=== PATIENT | male | born 1980 ===

== ENCOUNTER 2016-11-10 11:45 | Emergency (ER) | payer MEDICAID, OTHER ==
[2016-11-10 11:46] VITALS: BMI 25.0
[2016-11-10 11:51] VITALS: BP 137/72; PULSE 74; RESP 18; TEMP 98.4; O2SAT 100
--- NOTE | 2016-11-10 12:17 | C.PDOC ---
History Of Present Illness 35 y/o male presents to ED with complaints of lesions on scrotum and left buttock. Patient states it is an herpes outbreak that he has had before and is requesting for medications. Patient denies dysuria, hematuria, fever or any other complaints at this time. Time Seen by Provider: 11/10/16 12:01 Chief Complaint (Nursing): Abnormal Skin Integrity History Per: Patient History/Exam Limitations: no limitations Onset/Duration Of Symptoms: Days Past Medical History Reviewed: Historical Data, Nursing Documentation, Vital Signs Vital Signs: Last Vital Signs Temp 98.4 F 11/10/16 11:48 Pulse 74 11/10/16 11:48 Resp 18 11/10/16 11:48 BP 137/72 11/10/16 11:48 Pulse Ox 100 11/10/16 12:18 - Medical History PMH: Anxiety, Bipolar Disorder, Cardia Arrhythmia, Depression, Schizophrenia - [facility] Procedures INSERTION OF ENDOTRACHEAL AIRWAY INTO TRACHEA, VIA OPENING (07/10/15) PSYCHIA INTERV/EVAL NEC (12/12/14) RESPIRATORY VENTILATION, 24-96 CONSECUTIVE HOURS (07/10/15) Family History: States: Unknown Family Hx - Social History Hx Tobacco Use: Yes Hx Alcohol Use: Yes Hx Substance Use: Yes - Immunization History Hx Tetanus Toxoid Vaccination: Yes Hx Influenza Vaccination: No Hx Pneumococcal Vaccination: No Review Of Systems Except As Marked, All Systems Reviewed And Found Negative. Constitutional: Negative for: Fever Genitourinary: Negative for: Dysuria, Hematuria Skin: Positive for: Lesions Physical Exam - Physical Exam Appears: Other (uncomfortable) Skin: Warm, No Dry Head: Atraumatic, Normacephalic Cardiovascular: Rhythm Regular, No Murmur Respiratory: Normal Breath Sounds, No Rales, No Rhonchi, No Wheezing Male Genital: Other (Scattered vesicular lesion on scrotum and inner left buttock) Extremity: Normal ROM, No Swelling Neurological/Psych: Oriented x3 ED Course And Treatment O2 Sat by Pulse Oximetry: 100 (RA) Pulse Ox Interpretation: Normal Medical Decision Making Medical Decision Making: Patient is discharged with medications and advised to follow up with PMD 1-2 days. Disposition Counseled Patient/Family Regarding: Diagnosis, Need For Followup, Rx Given - Disposition Referrals: [facility] [Outside] Disposition: HOME/ ROUTINE Disposition Time: 12:20 Condition: STABLE Additional Instructions: FOLLOW UP WITH YOUR DOCTOR IN 1-2 DAYS USE MEDICATIONS DIRECTED RETURN TO ER IF SYMPTOMS WORSEN Prescriptions: Acyclovir 400 mg PO TID #21 tablet Naproxen [Naprosyn Tab] 375 mg PO BID PRN #20 tab PRN Reason: pain Instructions: Genital Herpes Simplex (ED) Forms: Work Excuse Print Language: K[place]HILI - Clinical Impression Clinical Impression: Herpes genitalis - Scribe Statement The provider has reviewed the documentation as recorded by the Ginger Walters All medical record entries made by the Ginger were at my direction and personally dictated by me. I have reviewed the chart and agree that the record accurately reflects my personal performance of the history, physical exam, medical decision making, and the department course for this patient. I have also personally directed, reviewed, and agree with the discharge instructions and disposition.
== END 2016-11-10 12:58 | disposition home or self-care (01) ==
LOC: C.ER 11:45
DX: A60.02 Herpesviral infection of other male genital organs (principal)

== ENCOUNTER 2016-12-20 07:25 | Emergency (ER) | payer MEDICAID ==
[2016-12-20 07:26] VITALS: BMI 25.0
[2016-12-20 08:09] VITALS: TEMP 97.8; O2SAT 98
[2016-12-20 09:00] LABS: ALBUMIN 3.9 g/dL (3.5-5.0)
[2016-12-20 09:02] LABS: GFR AFRICAN-AMERICAN > 60; GFR NON-AFRICAN AMERICAN > 60
[2016-12-20 09:03] LABS: ALB/GLOB RATIO 0.8 (1.0-2.1); ALT/SGPT 29 U/L (21-72); AST/SGOT 40 U/L (17-59); BASO % 0.7 % (0.0-2.0); BLOOD UREA NITROGEN 13 mg/dL (9-20); CALCIUM 8.2 mg/dl (8.6-10.4); EOS # 0.2 K/uL (0.0-0.7); EOS % 8.1 % (0.0-4.0); HEMOGLOBIN 13.8 g/dL (12.0-18.0); LYMPH # 0.9 K/uL (1.0-4.3); LYMPH % 28.2 % (20.0-40.0); MEAN CELL VOLUME 93.2 fL (80.0-94.0); MEAN CORPUSCULAR HEMOGLOBIN 31.7 pg (27.0-31.0); MEAN PLATELET VOLUME 7.8 fL (7.2-11.7); MONO # 0.4 K/uL (0.0-0.8); MONO % 12.4 % (0.0-10.0); NEUT # 1.6 K/uL (1.8-7.0); NEUT % 50.6 % (50.0-75.0); NRBC % 0.2 % (0.0-2.0); RBC 4.34 Mil/uL (4.40-5.90); RED CELL DISTRIBUTION WIDTH 13.6 % (11.5-14.5); SQUAMOUS EPITHIAL < 1 /hpf (0-5); URINE BILIRUBIN NEGATIVE (NEGATIVE); URINE BLOOD 2+ (NEGATIVE); URINE CLARITY Clear (Clear); URINE COLOR Yellow (YELLOW); URINE GLUCOSE (UA) NORMAL (Normal); URINE LEUKOCYTE ESTERASE NEG Leu/uL (Negative); URINE NITRATE NEGATIVE (NEGATIVE); URINE PROTEIN NEGATIVE (NEGATIVE); URINE UROBILINOGEN NORMAL mg/dL (0.2-1.0); WHITE BLOOD COUNT 3.1 K/uL (4.8-10.8)
--- NOTE | 2016-12-20 09:20 | C.PDOC ---
History Of Present Illness 36 yr old male presents to the ER stating he has not been able to sleep for the past 6 days. Patient states his mind is "racing" and he has been concentrating on the same thing multiple times a day. Patient denies being seen by a psychiatrist, SI, HI, hallucinations, chest pain or SOB. Time Seen by Provider: 12/20/16 08:20 Chief Complaint (Nursing): Psychiatric Evaluation History Per: Patient History/Exam Limitations: no limitations Onset/Duration Of Symptoms: Days (6) Suicide/Self Injury Attempted (Context): None Past Medical History Reviewed: Historical Data, Nursing Documentation, Vital Signs Vital Signs: Last Vital Signs Temp 97.8 F 12/20/16 07:55 Pulse 79 12/20/16 10:30 Resp 16 12/20/16 10:30 BP 106/63 12/20/16 10:30 Pulse Ox 98 12/20/16 10:30 - Medical History PMH: Anxiety, Bipolar Disorder, Cardia Arrhythmia, Depression, Schizophrenia - [facility] Procedures INSERTION OF ENDOTRACHEAL AIRWAY INTO TRACHEA, VIA OPENING (07/10/15) PSYCHIA INTERV/EVAL NEC (12/12/14) RESPIRATORY VENTILATION, 24-96 CONSECUTIVE HOURS (07/10/15) Family History: States: No Known Family Hx - Social History Hx Tobacco Use: Yes Hx Alcohol Use: Yes Hx Substance Use: Yes - Immunization History Hx Tetanus Toxoid Vaccination: Yes Hx Influenza Vaccination: No Hx Pneumococcal Vaccination: No Review Of Systems Except As Marked, All Systems Reviewed And Found Negative. Cardiovascular: Negative for: Chest Pain Respiratory: Negative for: Shortness of Breath Psych: Negative for: Suicidal ideation Physical Exam - Physical Exam Appears: Non-toxic, No Acute Distress Skin: Warm, Dry, No Rash Head: Atraumatic, Normacephalic Oral Mucosa: Moist Chest: Symmetrical, No Tenderness Cardiovascular: Rhythm Regular, No Murmur Respiratory: Normal Breath Sounds, No Rales, No Rhonchi, No Wheezing Extremity: Normal ROM, No Swelling Neurological/Psych: Oriented x3, Normal Speech, Normal Motor ED Course And Treatment - Laboratory Results Result Diagrams: 12/20/16 08:34 12/20/16 08:34 O2 Sat by Pulse Oximetry: 98 (RA ) Pulse Ox Interpretation: Normal Medical Decision Making Medical Decision Making: PLAN: * Alcohol Serum * Drug Screen * CBC * CMP * Urinalysis * Xanax PO Disposition - Disposition Referrals: [facility] [place], [Non-Staff] - Disposition: HOME/ ROUTINE Disposition Time: 09:50 Condition: IMPROVED Additional Instructions: Thank you for letting us take care of you today. Your provider was Dr. Daniel. You were treated for anxiety. The emergency medical care you received today was directed at your acute symptoms. If you were prescribed any medication, please fill it and take as directed. It may take several days for your symptoms to resolve. Return to the Emergency Department if your symptoms worsen, do not improve, or if you have any other problems. Please contact your doctor or call one of the physicians/clinics you have been referred to that are listed on the Patient Visit Information form that is included in your discharge packet. Bring any paperwork you were given at discharge with you along with any medications you are taking to your follow up visit. Our treatment cannot replace ongoing medical care by a primary care provider (PCP) outside of the emergency department. Thank you for allowing the [facility] [place] team to be part of your care today. Follow up with your doctor and your psychiatrist in 2-3 days for further management. Prescriptions: ALPRAZolam [Xanax] 0.25 mg PO Q8 PRN #10 tab PRN Reason: Anxiety Instructions: Polysubstance Abuse (ED) Forms: [employer] (Persian) - Clinical Impression Clinical Impression: Anxiety reaction - Scribe Statement The provider has reviewed the documentation as recorded by the Scribe Yolanda Iverson Provider Attestation: All medical record entries made by the Scribe were at my direction and personally dictated by me. I have reviewed the chart and agree that the record accurately reflects my personal performance of the history, physical exam, medical decision making, and the department course for this patient. I have also personally directed, reviewed, and agree with the discharge instructions and disposition.
[2016-12-20 09:26] LABS: BARBITURATES, UR NEGATIVE (NEGATIVE)
[2016-12-20 09:27] LABS: BENZODIAZEPINES, UR NEGATIVE (NEGATIVE)
[2016-12-20 09:29] LABS: OPIATES, UR NEGATIVE (NEGATIVE)
[2016-12-20 09:45] LABS: PHENCYCLIDINE, UR POSITIVE (NEGATIVE)
[2016-12-20 10:30] VITALS: BP 106/63; PULSE 79; RESP 16
== END 2016-12-20 10:30 | disposition home or self-care (01) ==
LOC: C.ER 07:25
DX: F41.1 Generalized anxiety disorder (principal)

== ENCOUNTER 2017-05-04 21:13 | Emergency (ER) | payer SELFPAY ==
[2017-05-04 21:13] VITALS: BMI 25.0
[2017-05-04 21:25] VITALS: BP 117/79; PULSE 89; TEMP 98.2; O2SAT 95
--- NOTE | 2017-05-04 21:33 | C.PDOC ---
History Of Present Illness 36 year old male, with history of herpes, presents to the ER complaining of a painful sore in his lower lip. He feels like he is getting a breakout and would like to receive medication.He has no other medical complaints. Time Seen by Provider: 05/04/17 21:26 Chief Complaint (Nursing): Abnormal Skin Integrity History Per: Patient History/Exam Limitations: no limitations Onset/Duration Of Symptoms: Hrs Current Symptoms Are (Timing): Still Present Past Medical History Reviewed: Historical Data, Nursing Documentation, Vital Signs Vital Signs: Last Vital Signs Temp 98.2 F 05/04/17 21:20 Pulse 89 05/04/17 21:20 Resp 16 05/04/17 21:20 BP 117/79 05/04/17 21:20 Pulse Ox 95 05/04/17 21:46 - Medical History PMH: Anxiety, Bipolar Disorder, Cardia Arrhythmia, Depression, Schizophrenia Denies: Diabetes, Hepatitis, HIV, HTN, Chronic Kidney Disease, Seizures, Sexually Transmitted Disease Surgical History: No Surg Hx - [facility] Procedures INSERTION OF ENDOTRACHEAL AIRWAY INTO TRACHEA, VIA OPENING (07/10/15) PSYCHIA INTERV/EVAL NEC (12/12/14) RESPIRATORY VENTILATION, 24-96 CONSECUTIVE HOURS (07/10/15) Family History: States: No Known Family Hx - Social History Hx Tobacco Use: Yes Hx Alcohol Use: Yes Hx Substance Use: Yes - Immunization History Hx Tetanus Toxoid Vaccination: No Hx Influenza Vaccination: No Hx Pneumococcal Vaccination: No Review Of Systems Except As Marked, All Systems Reviewed And Found Negative. Skin: Positive for: Other (painful sore in lower lip) Physical Exam - Physical Exam Appears: Non-toxic, No Acute Distress, Other (agitated) Skin: Normal Color, Warm Head: Atraumatic, Normacephalic Eye(s): bilateral: Normal Inspection, EOMI Nose: Normal Oral Mucosa: Moist Lips: Erythema (mild erythema in the right side of lower lip, no vesicle), Other (apthous ulcer to the inner lower lip) Neck: Supple Chest: Symmetrical Cardiovascular: Rhythm Regular Respiratory: Normal Breath Sounds, No Accessory Muscle Use Neurological/Psych: Oriented x3, Normal Speech Gait: Steady ED Course And Treatment O2 Sat by Pulse Oximetry: 95 (RA) Pulse Ox Interpretation: Normal Medical Decision Making Medical Decision Making: Patient with oral canker sore and small spot to lower lip. Patient insists on getting Herpes medicine stating he knows he will get breakout. Prior record reviewed and patient has been seen before for similar symptom. Patient stable for discharge. Disposition Counseled Patient/Family Regarding: Need For Followup, Rx Given - Disposition Referrals: [facility] [Outside] [facility] [Outside] Disposition: HOME/ ROUTINE Disposition Time: 21:33 Condition: GOOD Additional Instructions: Follow up with the clinic in 2-5 days for further evaluation. Take medications as prescribed. Return to the emergency department at any time if symptoms persist or worsen. You may call [employer] for any assistance [phone]. Prescriptions: Acyclovir [Zovirax] 400 mg PO TID #21 tab Instructions: Oral Herpes Simplex Virus Infections (ED) Forms: [employer] (Cambodian) - POA Present On Arrival: None - Clinical Impression Clinical Impression: Herpes simplex, Aphthous ulcer - PA / [employer] MANAGER / Resident Statement MD/DO has reviewed & agrees with the documentation as recorded. - Scribe Statement The provider has reviewed the documentation as recorded by the Ginger Montelongo Provider Attestation All medical record entries made by the Ginger were at my direction and personally dictated by me. I have reviewed the chart and agree that the record accurately reflects my personal performance of the history, physical exam, medical decision making, and the department course for this patient. I have also personally directed, reviewed, and agree with the discharge instructions and disposition.
[2017-05-04 22:04] VITALS: RESP 20
== END 2017-05-04 22:03 | disposition home or self-care (01) ==
LOC: C.ER 21:13
DX: K12.0 Recurrent oral aphthae (principal); B00.1 Herpesviral vesicular dermatitis; Z87.891 Personal history of nicotine dependence

== ENCOUNTER 2018-02-20 10:14 | Emergency (ER) | payer OTHER ==
[2018-02-20 10:14] VITALS: BMI 25.0
[2018-02-20 10:21] VITALS: RESP 18; O2SAT 99
--- NOTE | 2018-02-20 11:05 | C.PDOC ---
History Of Present Illness 37 year old male patient presents to the ER with c/o lower and periumbilical abdominal pain that started at 4 am. Patient reports the pain is intermittent and he has a constant feeling of needing to have a bowel movement. Patient sta nima pain is a 4/10 with a pressure feeling. Associated symptoms includes nausea and several episodes of watery diarrhea. Patient denies vomiting and fever. Patient notes his last food intake was [employer] last night. Time Seen by Provider: 02/20/18 10:43 Chief Complaint (Nursing): Abdominal Pain History Per: Patient History/Exam Limitations: no limitations Onset/Duration Of Symptoms: Hrs Current Symptoms Are (Timing): Still Present Context: Food Pain Scale Rating Of: 4 Location Of Pain/Discomfort: Periumbilical, Other (lower abdominal ) Quality Of Discomfort: Pressure Associated Symptoms: Nausea, Diarrhea (watery). denies: Vomiting Past Medical History Reviewed: Historical Data, Nursing Documentation, Vital Signs Vital Signs: Last Vital Signs Temp 99.1 F 02/20/18 10:19 Pulse 86 02/20/18 10:19 Resp 18 02/20/18 10:19 BP 131/83 02/20/18 10:19 Pulse Ox 99 02/20/18 10:19 - Medical History PMH: Anxiety, Bipolar Disorder, Cardia Arrhythmia, Depression, Schizophrenia - [facility] Procedures INSERTION OF ENDOTRACHEAL AIRWAY INTO TRACHEA, VIA OPENING (07/10/15) PSYCHIA INTERV/EVAL NEC (12/12/14) RESPIRATORY VENTILATION, 24-96 CONSECUTIVE HOURS (07/10/15) Family History: States: Unknown Family Hx - Social History Hx Tobacco Use: Yes Hx Alcohol Use: Yes Hx Substance Use: Yes - Immunization History Hx Tetanus Toxoid Vaccination: No Hx Influenza Vaccination: No Hx Pneumococcal Vaccination: No Review Of Systems Except As Marked, All Systems Reviewed And Found Negative. Constitutional: Negative for: Fever Gastrointestinal: Positive for: Nausea, Abdominal Pain (periumbilical and lower abdominal pain), Diarrhea. Negative for: Vomiting Physical Exam - Physical Exam Appears: Non-toxic, No Acute Distress Skin: Normal Color, Warm, Dry Head: Normacephalic Eye(s): bilateral: Normal Inspection, EOMI Oral Mucosa: Moist Throat: Normal Chest: Symmetrical, No Deformity Cardiovascular: Rhythm Regular Respiratory: Normal Breath Sounds Gastrointestinal/Abdominal: Soft, Tenderness (+periumbilica tenderness; +lower abdominal tenderness) Back: No CVA Tenderness Extremity: Normal ROM (x4) Neurological/Psych: Oriented x3, Normal Speech ED Course And Treatment - Laboratory Results Result Diagrams: 02/20/18 11:16 02/20/18 11:16 O2 Sat by Pulse Oximetry: 99 (RA) Pulse Ox Interpretation: Normal Medical Decision Making Medical Decision Making: Initial impression: gastroenteritis Initial plan: -- chem labs -- blood work -- pepcid -- IV fluids -- Zofran -- UA Reassess: Patient is resting comfortably, abdomen remains soft, and patient is tolerating PO. Patient feels comfortable going home. Patient will be discharged home. Disposition Counseled Patient/Family Regarding: Studies Performed, Diagnosis, Need For Followup, Rx Given - Disposition Referrals: [facility] [Outside] Disposition: HOME/ ROUTINE Disposition Time: 12:10 Condition: IMPROVED Additional Instructions: Mr. Callahan, thank you for letting us take care of you today. Return to the ER if your symptoms worsen, or if any problems. Take the medication listed below as prescribed. Please follow up at our [facility]. Call the phone number listed below to make an appointment. / Prescriptions: Ranitidine HCl [Zantac] 1 tab PO BID #30 tablet Instructions: Viral Gastroenteritis, Adult (DC) Print Language: ARGENTINE - Clinical Impression Clinical Impression: Gastroenteritis - Scribe Statement The provider has reviewed the documentation as recorded by the Yemiibtiffany Sequeira Do Provider Attestation: All medical record entries made by the Scribe were at my direction and personally dictated by me. I have reviewed the chart and agree that the record accurately reflects my personal performance of the history, physical exam, medical decision making, and the department course for this patient. I have also personally directed, reviewed, and agree with the discharge instructions and disposition.
[2018-02-20] MEDS ORDERED: Sodium Chloride 0.9% 1,000 ML IV ONE (11:06)
[2018-02-20] MEDS ORDERED: Sodium Chloride 0.9% 1,000 ML ONE (11:18)
[2018-02-20 11:40] LABS: BASO % 0.3 % (0.0-2.0); EOS % 0.9 % (0.0-4.0); HEMOGLOBIN 12.2 g/dL (12.0-18.0); LYMPH # 1.1 K/uL (1.0-4.3); LYMPH % 19.1 % (20.0-40.0); MEAN CELL VOLUME 92.2 fL (80.0-94.0); MEAN CORPUSCULAR HEMOGLOBIN 31.8 pg (27.0-31.0); MEAN CORPUSCULAR HGB CONC 34.5 g/dL (33.0-37.0); MEAN PLATELET VOLUME 7.4 fL (7.2-11.7); MONO # 0.7 K/uL (0.0-0.8); MONO % 12.8 % (0.0-10.0); NEUT # 3.8 K/uL (1.8-7.0); NEUT % 66.9 % (50.0-75.0); NRBC % 0.1 % (0.0-2.0); RBC 3.84 Mil/uL (4.40-5.90); RED CELL DISTRIBUTION WIDTH 13.2 % (11.5-14.5)
[2018-02-20 11:43] LABS: WHITE BLOOD COUNT 5.6 K/uL (4.8-10.8)
[2018-02-20 11:55] LABS: ALB/GLOB RATIO 0.7 (1.0-2.1); ALBUMIN 3.7 g/dL (3.5-5.0); ALT/SGPT 22 U/L (21-72); AST/SGOT 36 U/L (17-59); BLOOD UREA NITROGEN 12 mg/dL (9-20); CALCIUM 8.5 mg/dl (8.6-10.4); GFR NON-AFRICAN AMERICAN > 60; LIPASE 40 U/L (23-300)
[2018-02-20 12:23] VITALS: BP 156/79; PULSE 59; TEMP 98.7
[2018-02-20 12:25] LABS: URINE BILIRUBIN NEGATIVE (NEGATIVE); URINE CLARITY Clear (Clear); URINE COLOR Yellow (YELLOW); URINE GLUCOSE (UA) NORMAL (Normal); URINE LEUKOCYTE ESTERASE NEG Leu/uL (Negative); URINE PROTEIN NEGATIVE (NEGATIVE); URINE UROBILINOGEN NORMAL mg/dL (0.2-1.0)
[2018-02-20 12:32] LABS: URINE BLOOD 1+ (NEGATIVE)
== END 2018-02-20 12:23 | disposition home or self-care (01) ==
LOC: C.ER 10:14
DX: K52.9 Noninfective gastroenteritis and colitis, unspecified (principal)
CPT/HCPCS: 80053; 81001; 83690; 85025; 96361; 96374; 96375; 99285; J2405; J7030

== ENCOUNTER 2018-03-09 20:07 | Emergency (ER) | payer MEDICAID, OTHER ==
[2018-03-09 20:07] VITALS: BMI 25.0
[2018-03-09] MEDS ORDERED: Sodium Chloride 0.9% 1,000 ML ONE (20:31)
[2018-03-09] MEDS ORDERED: Sodium Chloride 0.9% 1,000 ML IV ONE (20:34)
[2018-03-09 20:40] LABS: BASO % 0.5 % (0.0-2.0); EOS # 0.1 K/uL (0.0-0.7); EOS % 2.3 % (0.0-4.0); HEMOGLOBIN 11.9 g/dL (12.0-18.0); LYMPH % 21.6 % (20.0-40.0); MEAN CELL VOLUME 92.1 fL (80.0-94.0); MEAN CORPUSCULAR HEMOGLOBIN 32.2 pg (27.0-31.0); MEAN PLATELET VOLUME 6.8 fL (7.2-11.7); MONO # 0.7 K/uL (0.0-0.8); MONO % 13.8 % (0.0-10.0); NEUT # 2.9 K/uL (1.8-7.0); NEUT % 61.8 % (50.0-75.0); NRBC % 0.1 % (0.0-2.0); RBC 3.7 Mil/uL (4.40-5.90); RED CELL DISTRIBUTION WIDTH 12.7 % (11.5-14.5); WHITE BLOOD COUNT 4.8 K/uL (4.8-10.8)
[2018-03-09 20:52] LABS: ALB/GLOB RATIO 0.7 (1.0-2.1); ALBUMIN 3.4 g/dL (3.5-5.0); ALT/SGPT 28 U/L (21-72); AST/SGOT 33 U/L (17-59); BLOOD UREA NITROGEN 16 mg/dL (9-20); CALCIUM 8.1 mg/dl (8.6-10.4); GFR NON-AFRICAN AMERICAN > 60
[2018-03-09] MEDS ORDERED: Iodixanol 320 MG/ML 100 ML BOTTLE IV ONE (21:05)
--- NOTE | 2018-03-09 21:19 | C.PDOC ---
Addendum entered and electronically signed by Canelo Whitfield MD 03/10/18 09:31: Addendum Addendum: 03/10/18 09:29 0900: d/w Radiology, ? small perirectal abscess on CT done last night pt c/o diarrhea and rectal pain CT +FOS argues against typical diarrheal disease Call to pt's home to discuss: [phone] no ans, left VM to call back this MD @ ED yen Original Note: History Of Present Illness 37 year old male, with no significant past medical history, presents to the ED for evaluation of diarrhea for one day. Patient reports having liquid stools and is now complaining of a burning sensation in his rectum when defecating. Patient also reports a subjective fever. He denies abdominal pain, rectal bleeding, recent hiking/camping trips, recent travel, or recent antibiotic use. Time Seen by Provider: 03/09/18 20:28 Chief Complaint (Nursing): Fever History Per: Patient History/Exam Limitations: no limitations Onset/Duration Of Symptoms: Hrs Current Symptoms Are (Timing): Still Present Recent travel outside of the [place]: No Additional History Per: Patient Past Medical History Reviewed: Historical Data, Nursing Documentation, Vital Signs Vital Signs: Last Vital Signs Temp 100 F H 03/09/18 20:15 Pulse 105 H 03/09/18 20:15 Resp 22 03/09/18 20:15 BP 151/71 H 03/09/18 20:15 Pulse Ox 97 03/09/18 20:15 - Medical History PMH: Anxiety, Bipolar Disorder, Cardia Arrhythmia, Depression, Schizophrenia Denies: Diabetes, Hepatitis, HIV, HTN, Chronic Kidney Disease, Seizures, Sexually Transmitted Disease Surgical History: No Surg Hx - [facility] Procedures INSERTION OF ENDOTRACHEAL AIRWAY INTO TRACHEA, VIA OPENING (07/10/15) PSYCHIA INTERV/EVAL NEC (12/12/14) RESPIRATORY VENTILATION, 24-96 CONSECUTIVE HOURS (07/10/15) Family History: States: Unknown Family Hx - Social History Hx Tobacco Use: Yes Hx Alcohol Use: Yes Hx Substance Use: Yes - Immunization History Hx Tetanus Toxoid Vaccination: No Hx Influenza Vaccination: No Hx Pneumococcal Vaccination: No Review Of Systems Constitutional: Positive for: Fever Gastrointestinal: Positive for: Diarrhea. Negative for: Abdominal Pain Physical Exam - Physical Exam Additional Physical Exam Comments: Constitutional: No acute distress. Head: Normocephalic. Atraumatic. Eyes: PERRL. ENT: Moist mucous membranes. Neck: Supple. Cardiovascular: Regular rate. Radial pulse 2+ bilaterally. Chest: No tenderness. Respiratory: Clear to auscultation bilaterally. GI: Tenderness to lower abdomen with guarding. Back: No CVA tenderness. Rectal: No hemorrhoids, fissures or abscesses noted. Musculoskeletal: No tenderness or swelling of extremities. Skin: Mildly warm to touch. No rash. Neurologic: Alert, no focal deficit. ED Course And Treatment - Laboratory Results Result Diagrams: 03/09/18 20:37 03/09/18 20:37 O2 Sat by Pulse Oximetry: 97 (on RA) Pulse Ox Interpretation: Normal Medical Decision Making Medical Decision Making: Impression: 37 year old male with diarrhea, subjective fever Plan: * bloodwork * CT A/P * IV Fluids * reassess and disposition Progress: Bloodwork and CT A/P were ordered and reviewed. IV Fluids given. CT IMPRESSION: Normal appendix. Constipation. Severe enteritis. Infectious and inflammatory etiologies are considered. Please specifically exclude celiac disease versus Crohn's. Consider consultation with GI service and follow up with upper endoscopy and colonoscopy. Electronically signed on Mar 09, 2018 10:32:28 PM EDT by: Jon Celeste M.D., DOREEN Certified By [facility] [employer] [facility] Fellowship Trained MRI and CT Specialist Discharged home, f/u GI, return to ED for worsening pain, fever, vomiting, bleeding, dyspnea, or any other problem. Disposition - Disposition Referrals: Jeovany Chavez [Staff Provider] - Disposition: HOME/ ROUTINE Disposition Time: 22:41 Condition: STABLE Prescriptions: levoFLOXacin [Levaquin] 1 tab PO DAILY #10 tab Metronidazole [Flagyl] 500 mg PO Q8 #30 tab Ondansetron ODT [Zofran ODT] 4 mg PO Q8 #12 odt Instructions: Inflammatory Bowel Disease Forms: [facility] (Spanish) - Clinical Impression Clinical Impression: Enteritis - Scribe Statement The provider has reviewed the documentation as recorded by the Scribe (Irina Casanova) Provider Attestation: All medical record entries made by the Scribe were at my direction and personally dictated by me. I have reviewed the chart and agree that the record accurately reflects my personal performance of the history, physical exam, medical decision making, and the department course for this patient. I have also personally directed, reviewed, and agree with the discharge instructions and disposition.
[2018-03-09 23:06] VITALS: BP 110/66; PULSE 70; RESP 18; TEMP 97.9
--- NOTE | 2018-03-10 09:41 | CT ---
Date of service: 03/09/2018 PROCEDURE: CT Abdomen and Pelvis without intravenous contrast HISTORY: Abdominal pain. Diarrhea. Fever. COMPARISON: None. TECHNIQUE: Multiple contiguous axial images were performed through the abdomen and pelvis without the use of intravenous contrast. Subsequently, sagittal and coronal reformatted images were obtained. Radiation dose: Total exam DLP = 758.68 mGy-cm. This CT exam was performed using one or more of the following dose reduction techniques: Automated exposure control, adjustment of the mA and/or kV according to patient size, and/or use of iterative reconstruction technique. FINDINGS: LOWER THORAX: Atelectasis at the lung bases. LIVER: Prominent liver. Unremarkable. No gross lesion or ductal dilatation. GALLBLADDER AND BILE DUCTS: Contracted gallbladder. PANCREAS: Unremarkable. No gross lesion or ductal dilatation. SPLEEN: Unremarkable. ADRENALS: Unremarkable. No mass. KIDNEYS AND URETERS: Unremarkable. No hydronephrosis. No solid mass. Punctate hypodensity in the upper pole of the right kidney, too small to adequately characterize. VASCULATURE: Unremarkable. No aortic aneurysm. No aortic atherosclerotic calcification or mural plaque present. BOWEL: Distended stomach. Suggestion of some thickened bowel loops in the upper mid abdomen which may represent enteritis. APPENDIX: Unremarkable. Normal appendix. PERITONEUM: Unremarkable. No free fluid. No free air. LYMPH NODES: Shotty inguinal and para-aortic lymph nodes. Shotty mesenteric lymph nodes. BLADDER: Unremarkable. REPRODUCTIVE: Unremarkable. BONES: No acute fracture. OTHER FINDINGS: 2.4 x 1.9 centimeter low-attenuation collection demonstrating a Hounsfield unit attenuation of 34 within the perianal region as demonstrated on series 3, image 181 concerning for a perianal abscess. Further evaluation with oral and IV contrast enhanced CT is recommended. IMPRESSION: 1. 2.4 X 1.9 centimeter low-attenuation collection demonstrating a Hounsfield unit attenuation of 34 within the perianal region as demonstrated on series 3, image 181 concerning for a perianal abscess. Further evaluation with oral and IV contrast enhanced CT is recommended. 2. Suggestion of some thickened bowel loops in the upper mid abdomen which may represent enteritis. These findings were discussed with Dr Canelo Brewer at 9:10 a.m. on 03/10/2018. A preliminary report was generated at 10:32 p.m. on 03/09/[address] Jon Celeste from [employer].
[2018-03-10 10:33] VITALS: O2SAT 97
== END 2018-03-09 23:06 | disposition home or self-care (01) ==
LOC: C.ER 20:07
DX: K52.9 Noninfective gastroenteritis and colitis, unspecified (principal)
CPT/HCPCS: 74177; 80053; 83735; 85025; 96360; 99285; J7030; Q9967